=== PATIENT | female | born 1950 | race Caucasian/White ===

== ENCOUNTER 2018-09-22 21:42 | Inpatient (IN) | payer MEDICARE, OTHER, MEDICAID ==
[2018-09-22 22:09] LABS: ADD MAN DIFF? NO
[2018-09-22 22:11] LABS: BASOPHILS % 0.4 % (0.0-2.0); EOSINOPHILS # 0.4 10^3/ul (0.0-0.5); EOSINOPHILS % 3.6 % (0.0-7.0); HEMATOCRIT 37.5 % (37.0-47.0); HEMOGLOBIN 12.4 g/dl (12.0-16.0); LYMPHOCYTES % 40.9 % (15.0-51.0); MEAN CORPUSCULAR HEMOGLOBIN 30.5 pg (29.0-33.0); MEAN CORPUSCULAR HGB CONC 33.1 g/dl (32.0-37.0); MEAN CORPUSCULAR VOLUME 92.1 fl (82.0-101.0); MEAN PLATELET VOLUME 10.2 fl (7.4-10.4); MONOCYTE # 0.6 10^3/ul (0.3-0.9); MONOCYTES % 6.3 % (0.0-11.0); NEUTROPHIL # 4.7 10^3/ul (1.6-7.5); NEUTROPHILS % 48.5 % (39.0-77.0); PLATELET COUNT 179 10^3/UL (140-415); RED BLOOD COUNT 4.07 10^6/ul (4.20-5.40); RED CELL DISTRIBUTION WIDTH 12.2 % (11.5-14.5)
[2018-09-22 22:11] LABS: WHITE BLOOD COUNT 9.7 10^3/ul (4.8-10.8)
[2018-09-22] MEDS: SOD CHLORIDE 0.9% 500 ML IV (22:15)
[2018-09-22 22:27] LABS: ALANINE AMINOTRANSFERASE 24 IU/L (13-69); ALBUMIN 4.4 g/dl (3.3-4.9); ALBUMIN/GLOBULIN RATIO 1.62; ALKALINE PHOSPHATASE 66 IU/L (42-121); ANION GAP 11 (5-13); ASPARTATE AMINO TRANSFERASE 22 IU/L (15-46); BILIRUBIN,INDIRECT 0.5 mg/dl (0-1.1); BILIRUBIN,TOTAL 0.5 mg/dl (0.2-1.3); BLOOD UREA NITROGEN 16 mg/dl (7-20); CALCIUM 9.7 mg/dl (8.4-10.2); CARBON DIOXIDE 28 mmol/L (21-31); CHLORIDE 101 mmol/L (97-110); Estimated GFR > 60 mL/min (>60); GLUCOSE 108 mg/dl (70-220); LIPASE 143 U/L (23-300); SODIUM 140 mmol/L (135-144); TOTAL PROTEIN 7.1 g/dl (6.1-8.1)
[2018-09-22 22:39] LABS: B-TYPE NATRIURETIC PEPTIDE 305 PG/ML (0-125); TROPONIN-I < 0.012 ng/ml (0.000-0.120)
[2018-09-22] MEDS: LIDOCAINE/MYLANTA 40 ML BTL PO (23:30)
[2018-09-23] MEDS ORDERED: NITROGLYCERIN (SL) 0.4 MG TAB SL (02:00)
[2018-09-23] MEDS ORDERED: NACL 0.9% 3 ML SYG IV (02:00)
[2018-09-23] MEDS ORDERED: ONDANSETRON 4 MG INJ IV (02:00)
[2018-09-23] MEDS ORDERED: ALBUTEROL/IPRATROPIUM (NEB) 3 ML AMP HHN (02:00)
[2018-09-23] MEDS ORDERED: ACETAMINOPHEN 325 MG TAB (02:07)
[2018-09-23 03:17] LABS: CK INDEX 1.5; CK-MB 0.65 ng/ml (0.0-2.4); CREATINE KINASE 44 IU/L (23-200); TROPONIN-I 0.032 ng/ml (0.000-0.120)
[2018-09-23] MEDS ORDERED: GLUCOSE GEL 15 GRAM TUBE BUCCAL (04:00)
[2018-09-23] MEDS ORDERED: DEXTROSE 50% 50 ML SYRINGE IV ×2 (04:00)
[2018-09-23] MEDS ORDERED: GLUCAGON 1 MG INJ IM (04:00)
[2018-09-23] MEDS ORDERED: GLUCOSE GEL 15 GRAM TUBE PO ×2 (04:00)
[2018-09-23] MEDS: ACETAMINOPHEN 325 MG TAB PO (04:35)
[2018-09-23] MEDS: morphine 4 MG/ML VIAL IV (05:33)
[2018-09-23] MEDS: ACCU-CHEK XX ×4 (07:25→21:00)
[2018-09-23 07:33] LABS: ADD MAN DIFF? NO
[2018-09-23 07:41] LABS: BASOPHILS % 0.5 % (0.0-2.0); EOSINOPHILS # 0.3 10^3/ul (0.0-0.5); EOSINOPHILS % 3.4 % (0.0-7.0); HEMATOCRIT 41.1 % (37.0-47.0); HEMOGLOBIN 13.6 g/dl (12.0-16.0); LYMPHOCYTES # 2.8 10^3/ul (0.8-2.9); LYMPHOCYTES % 31.3 % (15.0-51.0); MEAN CORPUSCULAR HEMOGLOBIN 30.6 pg (29.0-33.0); MEAN CORPUSCULAR HGB CONC 33.1 g/dl (32.0-37.0); MEAN CORPUSCULAR VOLUME 92.4 fl (82.0-101.0); MEAN PLATELET VOLUME 10.4 fl (7.4-10.4); MONOCYTE # 0.6 10^3/ul (0.3-0.9); MONOCYTES % 6.8 % (0.0-11.0); NEUTROPHIL # 5.1 10^3/ul (1.6-7.5); NEUTROPHILS % 57.5 % (39.0-77.0); PLATELET COUNT 180 10^3/UL (140-415); RED BLOOD COUNT 4.45 10^6/ul (4.20-5.40); RED CELL DISTRIBUTION WIDTH 12.3 % (11.5-14.5)
[2018-09-23 07:41] LABS: WHITE BLOOD COUNT 8.8 10^3/ul (4.8-10.8)
[2018-09-23 08:13] LABS: ALANINE AMINOTRANSFERASE 25 IU/L (13-69); ALBUMIN 4.5 g/dl (3.3-4.9); ALKALINE PHOSPHATASE 79 IU/L (42-121); ANION GAP 10 (5-13); ASPARTATE AMINO TRANSFERASE 22 IU/L (15-46); BILIRUBIN,INDIRECT 0.5 mg/dl (0-1.1); BILIRUBIN,TOTAL 0.5 mg/dl (0.2-1.3); BLOOD UREA NITROGEN 13 mg/dl (7-20); CALCIUM 9.9 mg/dl (8.4-10.2); CARBON DIOXIDE 30 mmol/L (21-31); CHLORIDE 103 mmol/L (97-110); CHOL/HDL RATIO 3.1 RATIO; CHOLESTEROL 141 mg/dl (100-200); CREATININE 0.73 mg/dl (0.44-1.00); Estimated GFR > 60 mL/min (>60); GLUCOSE 141 mg/dl (70-220); HDL CHOLESTEROL 45 mg/dl (33-92); LDL CHOLESTEROL,CALCULATED 62 mg/dl; POTASSIUM 4.5 mmol/L (3.5-5.1); SODIUM 143 mmol/L (135-144); TOTAL PROTEIN 7.5 g/dl (6.1-8.1); TRIGLYCERIDES 168 mg/dl (0-149)
[2018-09-23 08:19] LABS: CK-MB 1.02 ng/ml (0.0-2.4); TROPONIN-I 0.092 ng/ml (0.000-0.120)
[2018-09-23] MEDS: CLOPIDOGREL 75 MG TAB PO (08:21)
[2018-09-23] MEDS: metFORMIN 500 MG TAB PO (08:22)
[2018-09-23] MEDS: ASPIRIN (EC) 81 MG TAB PO (08:23)
[2018-09-23] MEDS: METOPROLOL (XL) 25 MG TAB PO (08:23)
[2018-09-23] MEDS: LINAGLIPTIN 5 MG TABLET PO (08:23)
[2018-09-23] MEDS: LOSARTAN 25 MG TAB PO (08:23)
[2018-09-23] MEDS: ENOXAPARIN 40 MG/0.4 ML SYG SC (08:27)
[2018-09-23] MEDS: FLUTICASONE 0.05% 16 GM NAS SPRAY NASAL ×2 (08:36→21:38)
[2018-09-23] MEDS ORDERED: PRASUGREL HCL 5 MG TABLET PO (09:00)
[2018-09-23 09:10] LABS: HEMOGLOBIN A1C 6.8 % (0-5.9)
[2018-09-23 09:50] LABS: CK INDEX 2.2; CREATINE KINASE 46 IU/L (23-200)
[2018-09-23 10:05] LABS: MAGNESIUM 2.3 mg/dl (1.7-2.5)
[2018-09-23] MEDS: INSULIN ASPART [NOVOLOG] 3 ML PEN SC ×2 (17:55→21:00)
[2018-09-23] MEDS: METOPROLOL 25 MG TAB PO (18:43)
[2018-09-23 19:46] LABS: ADD MAN DIFF? NO
[2018-09-23 19:47] LABS: BASOPHILS % 0.3 % (0.0-2.0); EOSINOPHILS # 0.3 10^3/ul (0.0-0.5); EOSINOPHILS % 2.7 % (0.0-7.0); HEMATOCRIT 41.9 % (37.0-47.0); HEMOGLOBIN 13.9 g/dl (12.0-16.0); LYMPHOCYTES # 3.1 10^3/ul (0.8-2.9); LYMPHOCYTES % 29.4 % (15.0-51.0); MEAN CORPUSCULAR HEMOGLOBIN 30.8 pg (29.0-33.0); MEAN CORPUSCULAR HGB CONC 33.2 g/dl (32.0-37.0); MEAN CORPUSCULAR VOLUME 92.9 fl (82.0-101.0); MEAN PLATELET VOLUME 10.4 fl (7.4-10.4); MONOCYTE # 0.6 10^3/ul (0.3-0.9); MONOCYTES % 5.8 % (0.0-11.0); NEUTROPHIL # 6.5 10^3/ul (1.6-7.5); NEUTROPHILS % 61.6 % (39.0-77.0); PLATELET COUNT 195 10^3/UL (140-415); RED BLOOD COUNT 4.51 10^6/ul (4.20-5.40); RED CELL DISTRIBUTION WIDTH 12.4 % (11.5-14.5)
[2018-09-23 19:47] LABS: WHITE BLOOD COUNT 10.5 10^3/ul (4.8-10.8)
[2018-09-23 20:06] LABS: INR 0.92; PROTIME 12.5 Sec (11.9-14.9)
[2018-09-23 20:07] LABS: PARTIAL THROMBOPLASTIN TIME 38.3 Sec (23.0-35.0)
[2018-09-23] MEDS: ATORVASTATIN 80 MG TAB PO (21:38)
[2018-09-23] MEDS: HEPARIN 1000 UNITS/ML 10 ML INJ IV (23:57)
[2018-09-23] MEDS: HEPARIN 25000 UNITS/250 ML 250 ML IV (23:58)
[2018-09-24] MEDS: ACCU-CHEK XX ×5 (02:00→20:37)
[2018-09-24 06:56] LABS: ADD MAN DIFF? NO
[2018-09-24 07:01] LABS: BASOPHILS % 0.4 % (0.0-2.0); EOSINOPHILS # 0.3 10^3/ul (0.0-0.5); EOSINOPHILS % 3.3 % (0.0-7.0); HEMATOCRIT 42.3 % (37.0-47.0); LYMPHOCYTES # 3.7 10^3/ul (0.8-2.9); LYMPHOCYTES % 40.6 % (15.0-51.0); MEAN CORPUSCULAR HEMOGLOBIN 30.5 pg (29.0-33.0); MEAN CORPUSCULAR HGB CONC 33.1 g/dl (32.0-37.0); MEAN CORPUSCULAR VOLUME 92.2 fl (82.0-101.0); MEAN PLATELET VOLUME 10.6 fl (7.4-10.4); MONOCYTE # 0.6 10^3/ul (0.3-0.9); NEUTROPHIL # 4.4 10^3/ul (1.6-7.5); NEUTROPHILS % 48.5 % (39.0-77.0); PLATELET COUNT 196 10^3/UL (140-415); RED BLOOD COUNT 4.59 10^6/ul (4.20-5.40); RED CELL DISTRIBUTION WIDTH 12.4 % (11.5-14.5)
[2018-09-24 07:24] LABS: ANION GAP 12 (5-13); BLOOD UREA NITROGEN 13 mg/dl (7-20); CALCIUM 10.1 mg/dl (8.4-10.2); CARBON DIOXIDE 23 mmol/L (21-31); CHLORIDE 105 mmol/L (97-110); CREATININE 0.65 mg/dl (0.44-1.00); Estimated GFR > 60 mL/min (>60); GLUCOSE 101 mg/dl (70-220); PHOSPHORUS 3.9 mg/dl (2.5-4.9); SODIUM 140 mmol/L (135-144)
[2018-09-24] MEDS ORDERED: LIDOCAINE 1% (MDV) 20 ML INJ (07:28)
[2018-09-24] MEDS ORDERED: MIDAZOLAM 1 MG/ML 2 ML INJ (07:28)
[2018-09-24] MEDS ORDERED: FENTAnyl 50 MCG/ML VIAL (07:28)
[2018-09-24] MEDS ORDERED: HEPARIN 1000 UNITS/ML 10 ML INJ (07:28)
[2018-09-24] MEDS ORDERED: IODIXANOL LOCM 100 ML BTL ×2 (07:28→08:40)
[2018-09-24] MEDS ORDERED: NITROGLYCERIN (IC) 100 MCG/ML INJ (07:29)
[2018-09-24] MEDS ORDERED: VERAPAMIL 5 MG INJ (07:29)
[2018-09-24] MEDS: INSULIN ASPART [NOVOLOG] 3 ML PEN SC ×4 (07:50→20:36)
[2018-09-24] MEDS ORDERED: ASPIRIN 81 MG TAB (08:10)
[2018-09-24] MEDS ORDERED: BIVALIRUDIN 250MG /NS 50 ML 50 ML IVPB (08:10)
[2018-09-24] MEDS ORDERED: CLOPIDOGREL 300 MG TAB (08:10)
[2018-09-24 08:38] LABS: PARTIAL THROMBOPLASTIN TIME > 180.0 Sec (23.0-35.0)
[2018-09-24] MEDS ORDERED: IOHEXOL 350MG/ML 50 ML BTL (08:40)
[2018-09-24] MEDS: FLUTICASONE 0.05% 16 GM NAS SPRAY NASAL ×2 (09:00→20:37)
[2018-09-24] MEDS: LOSARTAN 25 MG TAB PO (09:00)
[2018-09-24] MEDS: ASPIRIN (EC) 81 MG TAB PO (09:00)
[2018-09-24] MEDS: METOPROLOL (XL) 25 MG TAB PO (09:00)
[2018-09-24] MEDS: CLOPIDOGREL 75 MG TAB PO (09:00)
[2018-09-24] MEDS: SOD CHLORIDE 0.9% 1,000 ML IV (10:28)
[2018-09-24] MEDS: ATORVASTATIN 80 MG TAB PO (20:37)
[2018-09-25] MEDS: ACCU-CHEK XX ×3 (01:57→10:48)
[2018-09-25 05:12] LABS: ADD MAN DIFF? NO
[2018-09-25 05:19] LABS: BASOPHIL # 0.1 10^3/ul (0.0-0.1); BASOPHILS % 0.7 % (0.0-2.0); EOSINOPHILS # 0.2 10^3/ul (0.0-0.5); EOSINOPHILS % 2.9 % (0.0-7.0); LYMPHOCYTES # 2.3 10^3/ul (0.8-2.9); LYMPHOCYTES % 28.2 % (15.0-51.0); MEAN CORPUSCULAR HEMOGLOBIN 30.4 pg (29.0-33.0); MEAN CORPUSCULAR HGB CONC 33.3 g/dl (32.0-37.0); MEAN CORPUSCULAR VOLUME 91.3 fl (82.0-101.0); MEAN PLATELET VOLUME 10.3 fl (7.4-10.4); MONOCYTE # 0.6 10^3/ul (0.3-0.9); MONOCYTES % 7.2 % (0.0-11.0); NEUTROPHILS % 60.8 % (39.0-77.0); PLATELET COUNT 164 10^3/UL (140-415); RED BLOOD COUNT 4.27 10^6/ul (4.20-5.40); RED CELL DISTRIBUTION WIDTH 12.5 % (11.5-14.5)
[2018-09-25 05:19] LABS: WHITE BLOOD COUNT 8.2 10^3/ul (4.8-10.8)
[2018-09-25 05:48] LABS: ANION GAP 9 (5-13); BLOOD UREA NITROGEN 13 mg/dl (7-20); CALCIUM 9.6 mg/dl (8.4-10.2); CARBON DIOXIDE 23 mmol/L (21-31); CHLORIDE 108 mmol/L (97-110); CREATININE 0.65 mg/dl (0.44-1.00); Estimated GFR > 60 mL/min (>60); GLUCOSE 114 mg/dl (70-220); MAGNESIUM 1.9 mg/dl (1.7-2.5); PHOSPHORUS 3.6 mg/dl (2.5-4.9); POTASSIUM 3.9 mmol/L (3.5-5.1); SODIUM 140 mmol/L (135-144)
[2018-09-25] MEDS: INSULIN ASPART [NOVOLOG] 3 ML PEN SC ×2 (07:35→10:48)
[2018-09-25] MEDS: ASPIRIN (EC) 81 MG TAB PO (09:30)
[2018-09-25] MEDS: CLOPIDOGREL 75 MG TAB PO (09:30)
[2018-09-25] MEDS: LOSARTAN 25 MG TAB PO (09:30)
[2018-09-25] MEDS: FLUTICASONE 0.05% 16 GM NAS SPRAY NASAL (09:31)
[2018-09-25] MEDS: METOPROLOL (XL) 25 MG TAB PO (09:31)
[2018-09-25] MEDS: TICAGRELOR 90 MG TABLET PO (10:47)
[2018-09-25] MEDS ORDERED: TICAGRELOR 90 MG TABLET PO (21:00)
== END 2018-09-25 11:10 | disposition home or self-care (01) | DRG 247 ==
LOC: TEL 09-23 00:35 → E/R 21:42 → ICU 09-24 12:24 → TEL 09-23 23:37
PROC: 027135Z Dilation of Coronary Artery, Two Arteries with Two Drug-eluting Intraluminal Devices, Percutaneous Approach (ICD-10-PCS; principal; 2018-09-24 07:24)
PROC: 4A023N7 Measurement of Cardiac Sampling and Pressure, Left Heart, Percutaneous Approach (ICD-10-PCS; 2018-09-24 07:24)
PROC: B211YZZ Fluoroscopy of Multiple Coronary Arteries using Other Contrast (ICD-10-PCS; 2018-09-24 07:24)
DX: I21.4 Non-ST elevation (NSTEMI) myocardial infarction (principal); I25.10 Atherosclerotic heart disease of native coronary artery without angina pectoris; E11.9 Type 2 diabetes mellitus without complications; E78.5 Hyperlipidemia, unspecified; R51 Headache; R91.8 Other nonspecific abnormal finding of lung field; Z86.73 Personal history of transient ischemic attack (TIA), and cerebral infarction without residual deficits; Z95.5 Presence of coronary angioplasty implant and graft
CPT/HCPCS: 36415; 70450; 71045; 80048; 80053; 80061; 82550; 82553; 82962; 83036; 83690; 83735; 83880; 84100; 84443; 84484; 85025; 85610; 85730; 87081; 93005; 93306; 93458; 99217; 99285-25; G0378